=== PATIENT | female | born 1960 | race Caucasian/White ===

== ENCOUNTER 2017-02-22 15:41 | Emergency (ER) | payer SELFPAY ==
[~2017-02-22 15:41] MED LIST: LEXAPRO10 MG; SINGULAIR10 MG PO
[2017-02-22] MEDS ORDERED: HYZAAR 100-251 EACH PO (16:22)
[2017-02-22] MEDS ORDERED: SYNTHROID100 MC1 PO (16:22)
[2017-02-22] MEDS ORDERED: ATIVAN1 M2 PO (17:44)
== END 2017-02-22 17:56 ==
LOC: EDMED 15:41
DX: F41.9 Anxiety disorder, unspecified (principal); I10 Essential (primary) hypertension; E03.9 Hypothyroidism, unspecified; Z79.890 Hormone replacement therapy; Z79.899 Other long term (current) drug therapy; Z87.891 Personal history of nicotine dependence